=== PATIENT | female | born 1955 | race African-American/Black ===

== ENCOUNTER → 2020-10-13 | Outpatient (CLI) | payer OTHER | LOC: M.CT 10:02 | PROVIDERS: ATTEND Internal Medicine Cardiovascular Disease | DX: R07.2 Precordial pain (principal); I10 Essential (primary) hypertension ==

== ENCOUNTER → 2020-10-13 | Outpatient (CLI) | payer MEDICARE | LOC: M.RAD 10-05 13:30 | PROVIDERS: ATTEND Internal Medicine | DX: M81.0 Age-related osteoporosis without current pathological fracture (principal) ==

== ENCOUNTER → 2020-10-26 | Outpatient (CLI) | payer MEDICARE ==
[2020-10-26 12:22] LABS: HEMATOCRIT 37.6 % (37.0-47.0); HEMOGLOBIN 11.8 gm/dL (12.0-15.0); MCH 27.4 pg (26.0-34.0); MCHC 31.3 g/dL (28.0-37.0); MCV 87.7 fL (80.0-100.0); MPV 7.4 fl. (7.2-11.1); NUCLEATED RBCS 0 /100WBC; PLATELET COUNT* 303 thou/uL (150-400); RBC 4.29 mil/uL (4.20-5.00); RDW-CV 13.3 % (10.5-14.5); WBC 7.4 thou/uL (4.0-11.0)
[2020-10-26 12:38] LABS: CALCIUM 9.4 mg/dL (8.5-10.1); CREATININE 0.6 mg/dL (0.6-1.3); POTASSIUM 3.6 mmol/L (3.5-5.1)
[2020-10-26 12:43] LABS: ALBUMIN 3.5 g/dL (3.4-5.0); TOTAL BILIRUBIN 0.3 mg/dL (<0.1-1.0); TOTAL PROTEIN 7.6 g/dL (6.4-8.2)
[2020-10-26 12:56] LABS: ABSOLUTE EOSINOPHILS 0.1 thou/uL (0.0-0.7); ABSOLUTE LYMPHOCYTES 3.5 thou/uL (0.8-5.3); ABSOLUTE NEUTROPHILS 3.8 thou/uL (1.6-8.1); ATYPICAL LYMPHS 5 %; METAMYELOCYTES 3 %; PLATELET ESTIMATE ADEQUATE
== END ==
LOC: M.LAB 11:47
PROVIDERS: ATTEND Internal Medicine
DX: M47.814 Spondylosis without myelopathy or radiculopathy, thoracic region (principal); J44.9 Chronic obstructive pulmonary disease, unspecified; J84.10 Pulmonary fibrosis, unspecified; M40.209 Unspecified kyphosis, site unspecified; Z68.41 Body mass index [BMI] 40.0-44.9, adult

== ENCOUNTER → 2021-01-25 | Outpatient (CLI) | payer MEDICARE | LOC: M.RAD 10:42 | PROVIDERS: ATTEND Internal Medicine | DX: M47.816 Spondylosis without myelopathy or radiculopathy, lumbar region (principal); M48.061 Spinal stenosis, lumbar region without neurogenic claudication ==

== ENCOUNTER → 2021-09-25 | Outpatient (CLI) | payer MEDICARE | LOC: M.RAD 11:42 | PROVIDERS: ATTEND Internal Medicine | DX: J98.11 Atelectasis (principal); R07.81 Pleurodynia; M40.294 Other kyphosis, thoracic region; W19.XXXA Unspecified fall, initial encounter; Y93.89 Activity, other specified; Y92.89 Other specified places as the place of occurrence of the external cause; Y99.8 Other external cause status ==